=== PATIENT | male | born 1960 | race Caucasian/White ===

== ENCOUNTER 2017-10-11 10:16 | Outpatient (CLI) | payer OTHER | END 2017-10-11 17:00 | disposition home or self-care (01) | LOC: HPC 10:16 | DX: R16.0 Hepatomegaly, not elsewhere classified (principal); R22.31 Localized swelling, mass and lump, right upper limb; R51 Headache; E11.9 Type 2 diabetes mellitus without complications; E78.5 Hyperlipidemia, unspecified; I12.0 Hypertensive chronic kidney disease with stage 5 chronic kidney disease or end stage renal disease; N18.6 End stage renal disease; Z99.2 Dependence on renal dialysis; K74.60 Unspecified cirrhosis of liver; Z86.73 Personal history of transient ischemic attack (TIA), and cerebral infarction without residual deficits; Z72.0 Tobacco use | CPT/HCPCS: Z7500 ==